=== PATIENT | female | born 1985 | race Caucasian/White ===

== ENCOUNTER 2016-07-20 05:55 | Day surgery (SDC) | payer OTHER ==
[~2016-07-20] VITALS: Ht 167.6 cm; Wt 90.7 kg
[2016-07-20] MEDS ORDERED: GLYCOPYRROLATE 0.2 MG/ML VIAL IV ONE (07:54)
[2016-07-20] MEDS ORDERED: NEOSTIGMINE 1:1000 10 MG/10 ML VIAL IM ONE (07:54)
[2016-07-20] MEDS ORDERED: PROPOFOL 200 MG/20 ML VIAL IV ONE (07:54)
[2016-07-20] MEDS ORDERED: ROCURONIUM 50 MG/5 ML VIAL IV ONE (07:54)
[2016-07-20] MEDS ORDERED: ONDANSETRON 4 MG/2 ML VIAL IVP ONE (07:54)
[2016-07-20] MEDS ORDERED: SEVOFLURANE 250 ML BTL INH ONE (07:54)
[2016-07-20] MEDS ORDERED: DEXAMETHASONE 4 MG/ML VIAL IVP ONE (07:54)
[2016-07-20] MEDS ORDERED: BUPIVACAINE-MPF/EPI 0.25% 30 ML VIAL INJ ONE (07:58)
[2016-07-20] MEDS ORDERED: fentaNYL 0.05 MG/ML VIAL ONE (08:02)
[2016-07-20] MEDS ORDERED: NEOMYCIN/POLYMYXIN/BACITRACIN OIN 15 GM TUBE TP ONE (08:48)
== END 2016-07-20 11:19 | disposition home or self-care (01) ==
LOC: MDS 05:55 → MMU 05:55 → MDS 11:19
PROVIDERS: ATTEND Surgery
DX: D49.0 Neoplasm of unspecified behavior of digestive system (principal); Z98.51 Tubal ligation status; E66.9 Obesity, unspecified
CPT/HCPCS: 11642; 71010; 88304; J0690; J1100; J2405; J2704; J2710; J3010; J3490; J7060; J7120